=== PATIENT | female | born 1985 | race Caucasian/White ===

== ENCOUNTER → 2017-07-30 | Outpatient (CLI) | payer MEDICAID | LOC: M RAD 09:54 | DX: Z36.9 Encounter for antenatal screening, unspecified (principal); Z3A.01 Less than 8 weeks gestation of pregnancy | CPT/HCPCS: 76801 ==

== ENCOUNTER → 2017-10-22 | Outpatient (CLI) | payer MEDICAID | LOC: M RAD 13:32 | DX: Z36.89 Encounter for other specified antenatal screening (principal); Z3A.19 19 weeks gestation of pregnancy | CPT/HCPCS: 76811 ==

== ENCOUNTER → 2018-02-14 | Outpatient (REF) | payer MEDICAID | LOC: M LAB REF 12:59 | DX: Z34.83 Encounter for supervision of other normal pregnancy, third trimester (principal); Z36.85 Encounter for antenatal screening for Streptococcus B | CPT/HCPCS: 87186 ==

== ENCOUNTER 2018-03-12 04:51 | Inpatient (IN) | payer OTHER ==
[2018-03-12 06:33] LABS: HEMATOCRIT 37.1 % (36.0-47.0); HEMOGLOBIN 13.1 g/dl (12.0-15.5); MEAN CORPUSCULAR HEMOGLOBIN 32.3 pg (27.0-33.0); MEAN CORPUSCULAR HGB CONC 35.3 g/dl (32.0-36.5); MEAN CORPUSCULAR VOLUME 91.6 fl (80.0-96.0); PLATELET COUNT, AUTOMATED 182 10^3/uL (150-450); RED BLOOD COUNT 4.05 10^6/uL (4.00-5.40); RED CELL DISTRIBUTION WIDTH 13.1 % (11.5-14.5); WHITE BLOOD COUNT 13.1 10^3/uL (4.0-10.0)
[2018-03-12] MEDS: LACTATED RINGER'S 1000 ML IV (07:27)
[2018-03-12] MEDS: BICITRA 30ML SOLN UDC PO (07:27)
[2018-03-12] MEDS: AZTREONAM 2 GM in D5W MINI-BAG PLUS 50 ML IV (07:28)
[2018-03-12] MEDS: CLINDAMYCIN 900 MG in APPROPRIATE DILUENT 1 EA IV (07:59)
[2018-03-12] MEDS ORDERED: OXYTOCIN INJ 10 UNITS/ML VIAL (J2590) As Ordered (08:38)
[2018-03-12] MEDS ORDERED: MORPHINE PRES-FREE INJ 10 MG/10 ML VIAL (J2274) As Ordered (08:38)
[2018-03-12] MEDS ORDERED: METOCLOPRAMIDE INJ 10MG/2ML VIAL (J2765) IV (08:41)
[2018-03-12] MEDS ORDERED: NALBUPHINE HCL 10 MG/ML AMP (J2300) IV ×2 (08:41→10:15)
[2018-03-12] MEDS ORDERED: NALOXONE INJ 0.4 MG/1 ML VIAL (J2310) IV ×2 (08:41)
[2018-03-12] MEDS ORDERED: ONDANSETRON 4MG/2ML VIAL (J2405) IV ×3 (08:41→10:15)
[2018-03-12] MEDS ORDERED: GLYCOPYRROLATE INJ 0.2 MG/ML 2 ML VIAL As Ordered (08:46)
[2018-03-12] MEDS ORDERED: LIDOCAINE PRES-FREE 2% 10ML AMP As Ordered (08:48)
[2018-03-12] MEDS ORDERED: ePHEDrine SULFATE 25 MG/5 ML(5MG/ML) SYRINGE As Ordered (08:52)
[2018-03-12] MEDS ORDERED: PHENYLephrine HCL 500 MCG/5 ML (100MCG/ML) SYRINGE (J2370) As Ordered (08:52)
[2018-03-12 09:06] LABS: HBSAG L&D NEGATIVE (NEGATIVE)
[2018-03-12] MEDS ORDERED: ONDANSETRON 4MG/2ML VIAL (J2405) As Ordered (09:09)
[2018-03-12] MEDS ORDERED: KETOROLAC 60 MG/2 ML VIAL (J1885) As Ordered (09:09)
[2018-03-12] MEDS ORDERED: RHOGAM 300 MCG (1500 IU) INJ (J2790) IM (09:45)
[2018-03-12] MEDS ORDERED: PERCOCET 5MG/325MG TAB PO ×2 (09:45)
[2018-03-12] MEDS ORDERED: MEASLES,MUMPS,RUBELLA VACCINE INJ (MMR-II) (90707) SC (09:45)
[2018-03-12] MEDS ORDERED: DOCUSATE SODIUM 100 MG CAP PO (09:45)
[2018-03-12] MEDS ORDERED: fentaNYL 100 MCG/2 ML INJECTION (J3010) IV (10:15)
[2018-03-12] MEDS ORDERED: OXYTOCIN 30 UNITS IN 0.9% NaCl 500ML IV BAG (J2590) As Ordered (10:47)
[2018-03-12] MEDS: OXYTOCIN DRIP 30 UNITS in APPROPRIATE DILUENT 1 EA IV (11:30)
[2018-03-12] MEDS: LR 1,000 ML IV ×2 (14:34→20:22)
[2018-03-12] MEDS: KETOROLAC 30 MG/ML VIAL (J1885) IV ×2 (15:58→21:00)
[2018-03-13] MEDS: KETOROLAC 30 MG/ML VIAL (J1885) IV (02:59)
[2018-03-13 08:24] LABS: HEMATOCRIT 27.8 % (36.0-47.0); MEAN CORPUSCULAR HEMOGLOBIN 32.7 pg (27.0-33.0); MEAN CORPUSCULAR HGB CONC 34.9 g/dl (32.0-36.5); MEAN CORPUSCULAR VOLUME 93.6 fl (80.0-96.0); PLATELET COUNT, AUTOMATED 155 10^3/uL (150-450); RED BLOOD COUNT 2.97 10^6/uL (4.00-5.40); RED CELL DISTRIBUTION WIDTH 13.4 % (11.5-14.5); WHITE BLOOD COUNT 12.6 10^3/uL (4.0-10.0)
[2018-03-13 08:32] LABS: HEMOGLOBIN 9.7 g/dl (12.0-15.5)
[2018-03-13] MEDS: PRENATAL VITAMINS CHEWABLE TABLET PO (10:45)
[2018-03-13] MEDS: IBUPROFEN 800 MG TAB PO (10:46)
== END 2018-03-13 12:42 | disposition home or self-care (01) | DRG 540 ==
LOC: M LDI 04:51 → M OBS 11:55
PROVIDERS: Obstetrics & Gynecology
PROC: 10D00Z1 Extraction of Products of Conception, Low, Open Approach (ICD-10-PCS; principal; 2018-03-12 08:00)
DX: O34.211 Maternal care for low transverse scar from previous cesarean delivery (principal); Z88.0 Allergy status to penicillin; Z37.0 Single live birth; Z3A.39 39 weeks gestation of pregnancy